=== PATIENT | male | born 2000 | race Two or more races ===

== ENCOUNTER 2024-05-04 12:13 | Emergency (ER) | payer BC ==
[~2024-05-04] VITALS: Ht 188 cm; Wt 135.5 kg
[2024-05-04 13:36] LABS: BASO # 0.1 10^3/uL (0.0-0.2); BASO % 1.1 % (0.0-1.0); EOS # 0.3 10^3/uL (0.0-0.5); EOS % 4.4 % (0.0-3.0); HEMATOCRIT 41.4 % (42.0-52.0); HEMOGLOBIN 14.6 g/dl (13.5-17.5); LYMPH # 1.7 10^3/uL (1.5-5.0); LYMPH % 26.7 % (24.0-44.0); MEAN CORPUSCULAR HEMOGLOBIN 32.2 pg (27.0-33.0); MEAN CORPUSCULAR HGB CONC 35.3 g/dl (32.0-36.5); MEAN CORPUSCULAR VOLUME 91.4 fl (80.0-96.0); MONO # 0.8 10^3/uL (0.0-0.8); MONO % 12.3 % (2.0-8.0); NEUTROPHILS # 3.5 10^3/uL (1.5-8.5); NEUTROPHILS % 55.3 % (36.0-66.0); PLATELET COUNT, AUTOMATED 189 10^3/uL (150-450); RED BLOOD COUNT 4.53 10^6/uL (4.30-6.10); WHITE BLOOD COUNT 6.3 10^3/uL (4.0-10.0)
[2024-05-04 13:58] LABS: CK-MB VALUE MASS < 1.0 NG/ML (<3.6)
[2024-05-04 13:59] LABS: LIPASE 26 U/L (12-53)
[2024-05-04 14:01] LABS: ALBUMIN 3.9 G/DL (3.2-5.2); ALKALINE PHOSPHATASE 70 U/L (46-116); ALT/SGPT 97 U/L (7.0-40); AST/SGOT 32 U/L (<34); BILIRUBIN,DIRECT 0.1 MG/DL (<0.4); BILIRUBIN,TOTAL 0.4 MG/DL (0.3-1.2); BLOOD UREA NITROGEN 23 MG/DL (9-23); CALCIUM LEVEL 9.6 MG/DL (8.5-10.1); CARBON DIOXIDE LEVEL 26 MMOL/L (20-31); CHLORIDE LEVEL 109 MMOL/L (98-107); CREATININE FOR GFR 0.86 MG/DL (0.70-1.30); GLOMERULAR FILTRATION RATE > 60.0 (>60); GLUCOSE, FASTING 95 MG/DL (60-100); MAGNESIUM LEVEL 1.9 MG/DL (1.8-2.4); POTASSIUM SERUM 4.2 MMOL/L (3.5-5.1); SODIUM LEVEL 139 MMOL/L (136-145); TOTAL PROTEIN 7.9 G/DL (5.7-8.2)
[2024-05-04 14:02] LABS: THYROID STIMULATING HORMONE 3.722 uIU/ML (0.55-4.78)
[2024-05-04 14:10] LABS: CPK CREATINE PHOSPHOKINASE 82 U/L (46-171); MB/CK RELATIVE INDEX 1.21 (< OR =4)
[2024-05-04] MEDS ORDERED: HOME MED LIST COMPLETE! XX SCH (15:05)
[2024-05-04 15:29] VITALS: BP 120/78; O2SAT 98
[2024-05-04] MEDS ORDERED: HOLTER MONITOR XX (15:36)
[2024-05-04 15:44] VITALS: TEMP 97.7
== END 2024-05-04 15:45 | disposition home or self-care (01) ==
LOC: M ED 12:13
DX: R00.2 Palpitations (principal); I44.0 Atrioventricular block, first degree; J45.909 Unspecified asthma, uncomplicated; F17.200 Nicotine dependence, unspecified, uncomplicated; Z88.0 Allergy status to penicillin; Z88.2 Allergy status to sulfonamides; Z88.1 Allergy status to other antibiotic agents

== ENCOUNTER → 2024-05-04 | Outpatient (CLI) | payer BC ==
[~2024-05-04] MED LIST: HOLTER MONITOR XX
== END ==
LOC: M EKG 17:12
PROVIDERS: ATTEND Physician Assistant
DX: R00.2 Palpitations (principal)

== ENCOUNTER 2024-10-19 10:18 | Day surgery (SDC) | payer BC ==
[~2024-10-19] VITALS: Ht 188 cm; Wt 136.5 kg
[2024-10-19] MEDS ORDERED: LR 1,000 ML IV SCH ×2 (10:50→13:40)
[2024-10-19] MEDS ORDERED: LIDOCAINE 2% 100MG/5ML SDV (FOR ANES.) As Ordered ONE (10:57)
[2024-10-19] MEDS ORDERED: ROCURONIUM BROMIDE 50MG/5ML VIAL As Ordered ONE (10:57)
[2024-10-19] MEDS ORDERED: propofoL 200 MG/20 ML VIAL As Ordered ONE (10:57)
[2024-10-19] MEDS ORDERED: MIDAZOLAM INJ 2MG/2ML VIAL As Ordered ONE (10:58)
[2024-10-19] MEDS ORDERED: fentaNYL 100 MCG/2 ML INJECTION As Ordered ONE (10:58)
[2024-10-19] MEDS ORDERED: ONDANSETRON 4MG 2ML VIAL As Ordered ONE (11:01)
[2024-10-19] MEDS: OXYMETAZOLINE 0.05% NASAL SPRAY As Ordered ONE (11:21)
[2024-10-19] MEDS ORDERED: SUGAMMADEX SODIUM 500 MG/5 ML VIAL (BRIDION) As Ordered ONE (11:46)
[2024-10-19] MEDS ORDERED: ACETAMINOPHEN 1000MG/100ML IV BAG As Ordered ONE (11:46)
[2024-10-19] MEDS ORDERED: fentaNYL 100 MCG/2 ML INJECTION IV PRN (12:30)
[2024-10-19] MEDS: ONDANSETRON 4MG 2ML VIAL IV PRN (13:35)
[2024-10-19] MEDS: oxyCODONE 5MG TAB PO PRN (13:35)
[2024-10-19] MEDS ORDERED: HYDROcodone/APAP LIQUID 7.5-325MG 15ML UDC (LORTAB ELIXIR) PO PRN (13:40)
[2024-10-19 14:38] VITALS: BP 131/74; TEMP 98.4; O2SAT 97
== END 2024-10-19 14:46 | disposition home or self-care (01) ==
LOC: M SDC 10:18
PROVIDERS: ATTEND Otolaryngology
DX: J35.01 Chronic tonsillitis (principal); R06.83 Snoring; Z72.0 Tobacco use; Z88.0 Allergy status to penicillin; Z88.2 Allergy status to sulfonamides; Z88.1 Allergy status to other antibiotic agents; Z88.8 Allergy status to other drugs, medicaments and biological substances
CPT/HCPCS: 42826; 88302; J0131; J0665; J1100; J2250; J2405; J3010